=== PATIENT | female | born 1985 | race Caucasian/White ===

== ENCOUNTER → 2023-04-10 | Outpatient (CLI) | payer BC, SELFPAY ==
[2023-04-10 12:34] LABS: Absolute Lymphocyte Count 3.11 X10^3/uL (0.83-4.51); Absolute Neutrophil Count 4.4 X10^3/uL (2.0-7.7); Basophil# 0.04 X10^3/uL; Basophil% 0.5 % (0-1); Eosinophil# 0.07 X10^3/uL; Eosinophils% 0.9 % (0-5); Hematocrit 39.4 % (37-47); Hemoglobin 12.9 g/dL (12.0-15.0); Lymphocyte # 3.11 X10^3/ul (0.83-4.51); Lymphocyte % 37.8 % (19-41); Mean Corp Hgb Conc 32.7 g/dL (32-36); Mean Corpuscular Hgb 28.9 pg (27.0-32.0); Mean Corpuscular Volume 88.3 fL (81-99); Mean Platelet Vol. 9.5 fl (6.2-12.0); Monocyte# 0.59 X10^3/uL; Monocyte% 7.2 % (0-10); NRBC Flagged by Analyzer 0 % (0-5); Neutrophil # 4.39 X10^3/uL (2.7-7.7); Neutrophil % 53.2 % (47-70); Platelet Count 387 K/mm3 (150-450); RBC Distribution Width CV 12.2 % (11.6-14.6); RBC Distribution Width SD 39.4 fl (35.1-43.9); Red Blood Count 4.46 M/mm3 (4.2-5.4); White Blood Count 8.2 K/mm3 (4.4-11.0)
[2023-04-10 13:12] LABS: Vitamin D,25 Hydroxy 48.7 ng/mL
[2023-04-10 13:28] LABS: ALB/GLOB Ratio 1.1 RATIO (0.9-2.4); AST(SGOT) 18 U/L (15-37); Alanine Aminotransfer ALT/SGPT 17 U/L (13-56); Albumin, Serum 3.6 g/dL (3.2-5.0); Alkaline Phosphatase 87 U/L (45-117); Anion Gap 5 (5-15); BUN 16 mg/dL (7-18); BUN/Creat Ratio 23.6 RATIO (10-20); Calcium,Total 8.9 mg/dL (8.5-10.1); Chloride 106 mmol/L (98-107); Cholesterol 132 mg/dL (200); Creatinine, Serum 0.68 mg/dL (0.55-1.02); EST Glomerular Filtration Rate 103 mL/min (>60); Est Glom Filt Rate - Afr Amer 124 mL/min (>60); Globulin 3.3 g/dL (2.2-4.2); Glucose 94 mg/dL (74-106); High Density Lipoprotein 52 mg/dL; Potassium 3.9 mmol/L (3.5-5.1); Protein, Total 6.9 g/dL (6.4-8.2); Sodium Level 138 mmol/L (136-145); Thyroid Stim Hormone (TSH) 1.91 uIU/mL (0.358-3.74); Triglycerides 75 mg/dL; Very Low Density Lipoprotein 15 mg/dL (5-40)
== END | disposition home or self-care (01) ==
LOC: MFPLAB 11:01
PROVIDERS: PCP Family Medicine; Visit Provider Family Medicine
DX: E66.9 Obesity, unspecified (principal); Z13.21 Encounter for screening for nutritional disorder; Z13.220 Encounter for screening for lipoid disorders; Z13.1 Encounter for screening for diabetes mellitus
CPT/HCPCS: 36415; 80053; 80061; 82306; 84443; 85025

== ENCOUNTER → 2023-05-14 | Outpatient (CLI) | payer BC, SELFPAY ==
[2023-05-21 14:09] LABS: HPV APTIMA, High Risk Negative (Negative)
[2023-05-22 18:58] LABS: HPV Reflexed? YES, CHARGE PATIENT
== END | disposition home or self-care (01) ==
LOC: LABSPEC 15:19
PROVIDERS: PCP Family Medicine; Referring Provider Family Medicine; Visit Provider Family Medicine
DX: Z12.4 Encounter for screening for malignant neoplasm of cervix (principal)
CPT/HCPCS: 87624; 88175; G0145

== ENCOUNTER → 2024-04-11 | Outpatient (CLI) | payer BC, SELFPAY ==
--- NOTE | 2024-04-11 07:34 | MRI_ITS ---
STUDY: MRI LEFT KNEE REASON FOR EXAM: Female, 39 years old. Injury, pain, difficulty bending, unstable left knee. TECHNIQUE: Standardized fat and water weighted pulse sequences were obtained in all 3 orthogonal planes. COMPARISON: None. FINDINGS: There is a horizontal-oblique undersurface tear of the posterior horn of the medial meniscus (sagittal PD series 4 images 9-13). Normal hyaline cartilage of the medial femorotibial compartment. Normal medial femoral condyle and tibial plateau. There is a minimal grade I MCL sprain with periligamentous edema (coronal T2 series 7 images 13-17). Normal distal semimembranosus, gracilis and semitendinosus tendons. Normal lateral meniscus. Normal hyaline cartilage of the lateral femorotibial compartment. Normal lateral femoral condyle. Normal proximal tibiofibular articulation. Normal lateral collateral (fibular) ligament. Normal popliteus tendon. Normal biceps femoris tendon. There is a tear of the proximal third of the ACL (sagittal T2 series 5 image 13). There is an associated bone impaction injury involving the posterior aspect of the lateral tibial plateau. Normal posterior cruciate ligament (PCL). 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 Congruent patellofemoral articulation. Normal medial and lateral patellar retinaculum. Normal quadriceps tendon. Normal patellar tendon. Normal Hoffa''s fat pad. There is a small volume joint effusion. There is a small partially leaking popliteal cyst. There is mild subcutaneous soft tissue edema along the anterior aspect of the knee. MRI/Lower Ext Joint Only (Routine) IMPRESSION: Tear of the proximal third of the ACL, with associated bone impaction injuries involving the posterior aspect of the lateral tibial plateau. Horizontal-oblique undersurface tear of the posterior horn of the medial meniscus. Minimal grade I MCL sprain. 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 Small joint effusion, with a small partially leaking popliteal cyst. Mild subcutaneous soft tissue edema along the anterior aspect of the knee. Electronically Signed: Master Davila MD at 8:51 EDT ,
== END | disposition home or self-care (01) ==
LOC: MRI 07:13
PROVIDERS: PCP Family Medicine; Referring Provider Nurse Practitioner Family; Visit Provider Nurse Practitioner Family
DX: S89.92XA Unspecified injury of left lower leg, initial encounter (principal); X58.XXXA Exposure to other specified factors, initial encounter
CPT/HCPCS: 73721

== ENCOUNTER → 2024-07-10 | Outpatient (CLI) | payer BC, SELFPAY ==
[2024-07-10 10:41] LABS: Absolute Neutrophil Count 3.8 X10^3/uL (2.0-7.7); Basophil# 0.07 X10^3/uL; Basophil% 0.9 % (0-1); Eosinophil# 0.18 X10^3/uL; Eosinophils% 2.4 % (0-5); Hematocrit 39.7 % (37-47); Hemoglobin 12.8 g/dL (12.0-15.0); Lymphocyte % 37.9 % (19-41); Mean Corp Hgb Conc 32.2 g/dL (32-36); Mean Corpuscular Hgb 27.6 pg (27.0-32.0); Mean Corpuscular Volume 85.6 fL (81-99); Mean Platelet Vol. 10.3 fl (6.2-12.0); Monocyte# 0.49 X10^3/uL; Monocyte% 6.6 % (0-10); NRBC Flagged by Analyzer 0 % (0-5); Neutrophil # 3.83 X10^3/uL (2.7-7.7); Neutrophil % 51.9 % (47-70); Platelet Count 283 K/mm3 (150-450); RBC Distribution Width CV 12.4 % (11.6-14.6); RBC Distribution Width SD 38.8 fl (35.1-43.9); Red Blood Count 4.64 M/mm3 (4.2-5.4); White Blood Count 7.4 K/mm3 (4.4-11.0)
[2024-07-10 11:42] LABS: Anion Gap 6 (5-15); BUN 20 mg/dL (7-18); BUN/Creat Ratio 21.6 RATIO (10-20); Calcium,Total 8.8 mg/dL (8.5-10.1); Chloride 108 mmol/L (98-107); Cholesterol 131 mg/dL (200); Creatinine, Serum 0.92 mg/dL (0.55-1.02); EST Glomerular Filtration Rate 71 mL/min (>60); Est Glom Filt Rate - Afr Amer 86 mL/min (>60); Glucose 104 mg/dL (74-106); High Density Lipoprotein 49 mg/dL; Potassium 4.2 mmol/L (3.5-5.1); Sodium Level 139 mmol/L (136-145); Triglycerides 64 mg/dL; Very Low Density Lipoprotein 13 mg/dL (5-40)
== END | disposition home or self-care (01) ==
LOC: MFPLAB 08:11
PROVIDERS: PCP Family Medicine; Visit Provider Family Medicine
DX: R63.4 Abnormal weight loss (principal)
CPT/HCPCS: 36415; 80048; 80061; 82306; 84443; 85025

== ENCOUNTER 2024-08-13 07:56 | Day surgery (SDC) | payer BC, SELFPAY ==
[2024-08-13] VITALS (10 sets, daily range): BP systolic 94–132; BP diastolic 64–90; PULSE 65–85; RESP 16–18; TEMP 36.4–37.1; O2SAT 96–100; BMI 33.2
[2024-08-13 08:17] LABS: Internal QC Validated? YES +Cl - CLEAR BKGD; Pregnancy, Urine Negative Negative
--- OUTSIDE RECORDS SUMMARY | 2024-08-13 08:17 | XMS RPT_ITS | CCD ---
Author Organization [facility]formerly [facility] Partnership [facility] Care Team Providers Care Research Laboratory Technician Name Role Phone Unavailable Primary Care Provider Unavailguilherme e STEPHANIE FRANCO Attending Unavailable STEPHANIE FRANCO Referring Unavailable STEPHANIE FRANCO Referring Unavailable Medications Completed/Discontinued Medications Medication Drug Class(es) Dates Sig (Normalized) Sig (Original) 24 hr buPROPion hydrochloride 300 mg extended release oral tablet (1 source) Aminoketone take 1 tablet by mouth once daily buPROPion XL (WELLBUTRIN XL) 300 mg 24 hr tablet Take 300 mg by mouth once daily. 0 Active Comment on above: Take 300 mg by mouth once daily. Ethinyl Estradiol / Ferrous fumarate / Norethindrone (1 source) Estrogen Start: 10-21-2023 take 1 tablet by mouth once daily Norethin Monico-Eth Estrad-FE (.03/12, ,) 1.5 mg-30 mcg (21)/75 mg (7) tablet Indications: DUB (dysfunctional uterine bleeding) , IUD (intrauterine device) in place Take 1 tablet by mouth once daily. 28 tablet 0 10/21/2023 Active Comment on above: Take 1 tablet by once daily. levonorgestrel 0.748561 mg/hr intrauterine system (1 source) Progestin, Progestin-containi ng Intrauterine Device levonorgestrel (LILETTA) 20.4 mcg/24 hrs (8 yrs) 52 mg IUD 1 Each by INTRAUTERINE route one time only. 0 Active Comment on above: 1 Each by INTRAUTERI NE route one time only. Problems Problem Classification Problem Date Documented Date Episodic/Chronic Contraceptive and procreative management (1 source) Presence of (intrauterine) contraceptive device; Translations: [IUD (intrauterine device) in place] Onset: 11-04-2023 Episodic Other female genital disorders (1 source) Other specified abnormal uterine and vaginal bleeding; Translations: [DUB (dysfunctional uterine bleeding)] Onset: 11-04-2023 Chronic Other screening for suspected conditions (not mental disorders or infectious disease) (1 source) Encounter for screening mammogram for malignant neoplasm of breast; Translations: [Encounter for screening mammogram for breast cancer] Onset: 01-09-2024 Episodic Results Test Name Value Interpretation Reference Range Arthur Amaya 01-10-2024 [facility] HNO ID: [id number] Author: COORDINATOR, MAMMOGRAPHY, ? Service: ? Author Type: Physician Type: Letter Filed: 01/10/2024 10:59 Note Text: January 10, 2024 PID: [id number] Bucky Earle [address] [place] [address] Dear Ms. Og, We are pleased to inform you that the results of your recent breast imaging exam on 01/09/2024 are normal. Early detection of cancer is very important. We also understand recommendations regarding breast cancer screening are controversial. Please discuss with your primary care provider which strategy is best for you and whether a mammogram is right for you. Your imaging studies and report will be kept on file at [facility] as part of your permanent medical record and are available for your continuing care. Thank you for allowing us to help in meeting your health care needs. Sincerely, Dr. Cartagena Interpreting Radiologist [facility] (Normal over 40) Normal [facility] SCREENINGon 01-09-2024 [facility] SCREENING * * *Final Report* * * DATE OF EXAM: Jan 09 2024 11:12AM [facility] 0581 - [facility] SCREENING / PROCEDURE REASON: Encounter for screening mammogram for breast cancer * * * * Physician Interpretation * * * * RESULT: #[id number] - [facility] SCREENING BILATERAL DIGITAL SCREENING MAMMOGRAM WITH CAD: 01/09/2024 HISTORY: Encounter For Screening Mammogram For Breast Cancer / Screening Mammogram-Patient reports NO symptoms. /baseline mammogram. RESULT: TECHNIQUE: The study was acquired using full field digital technology and interpreted from soft copy. Current study was also evaluated with a Computer Aided Detection (CAD). No prior exams were available for comparison. There are scattered areas of fibroglandular density. Bilateral silicone implants are present. No significant masses, calcifications, or other findings are seen in either breast. IMPRESSION: BENIGN FINDING There is no mammographic evidence of malignancy. A 1 year screening mammogram is recommended. Geeta Cartagena M.D., mc/santi:01/10/2024 10:59:17 News Gathering Technician(s): Jessie Brice RT(R)(M), [facility] letter sent: Normal over 40 Mammogram BI-RADS: 2 Benign finding Multiple national specialty organizations have released breast cancer screening guidelines for women at average risk for developing breast cancer - guidelines that are based on both evidence and opinion, yet differ on when to start and how often to screen for breast cancer. With representation from Breast Imaging, Internal Medicine, Women's Health, Family Medicine, and Medical/Surgical Oncology, the [facility] has carefully reviewed the data and reached the following consensus: 1) All women should engage in shared decision-making with their providers to decide when to start and how often to screen; 2) All women should have the opportunity to start screening mammography at age 40; 3) For women ages 45-55, we recommend annual screening mammograms; 4) For women ages 55 and over, we support both the transition from an annual to a biennial interval if this aligns more with patient's values and preferences, or continuation with annual screening; 5) All women should discuss with their providers when to stop screening mammograms. Construction Grip: Santi Transcribe Date/Time: Jan 09 2024 10:43A Dictated by: GEETA CARTAGENA MD This examination was interpreted and the report reviewed and electronically signed by: GEETA CARTAGENA MD on Jan 10 2024 10:59AM EST [id number] Normal [facility] FEMALE PELVIS TRANSVAGon 11-04-2023 US FEMALE PELVIS TRANSVAG * * *Final Report* * * DATE OF EXAM: Nov 04 2023 10:26AM [facility] 1060 - US FEMALE PELVIS TRANSVAG / PROCEDURE REASON: multiple diagnoses * * * * Physician Interpretation * * * * EXAMINATION: TRANSVAGINAL AND LIMITED TRANSABDOMINAL FEMALE PELVIC ULTRASOUND CLINICAL HISTORY: Dysfunctional uterine bleeding. Intrauterine device. TECHNIQUE: Sonography of the pelvis was performed by transvaginal and transabdominal (limited) techniques. Images were obtained and stored in a permanent archive and interpreted remotely. MQ: [facility]_2022 COMPARISON: None RESULT: Uterus: -Size: 4.4 x 5.9 x 7.9 cm -Orientation: Anteverted -Endometrial echo complex: Intrauterine device appears in satisfactory position sonographically. The endometrial echo complex measured 0.4 cm. -Cervix: Nabothian cysts present, otherwise unremarkable. -Adenomyosis assessment: There are no sonographic findings of adenomyosis. -Fibroids: There are no fibroids. Right Ovary: 1.3 x 1.8 x 2.4 cm - Normal sonographic appearance with physiologic follicles. Preserved arterial and venous blood flow. Left Ovary: 1.8 x 2.6 x 2.8 cm - Normal sonographic appearance with physiologic follicles. Preserved arterial and venous blood flow Free Fluid: No abnormal free fluid is present. IMPRESSION: Normal sonographic appearance of the female pelvis with intrauterine device in place. Construction Grip: TRENT Transcribe Date/Time: Nov 04 2023 11:42A Dictated by : ИВАН MCKEON MD This examination was interpreted and the report reviewed and electronically signed by: ИВАН MCKEON MD on Nov 04 2023 11:45AM EST [id number] Normal [facility] CNOVon 10-21-2023 CNOV Office Visit (OBGYWM ) EARLEBUCKY Calloway ([id number]) 1985 F Date Time Provider Department 10/21/23 11:10 AM STEPHANIE FRANCO OBGYWM During your visit today, we recorded the following information about you: Blood pressure Weight Height Last Period 120/80 81.1 kg 1.6 m 09/29/23 Stephanie Franco MD 10/21/2023 1:04 PM Signed Bucky Og is a 38 year old female who presents for problem visit - irregular bleeding and abnormal pap smear. HPI: H/o menorrhagia since 2015 and had Liletta IUD inserted in 2020 for this. Bleeding is head porter baggage but sporadic. Bleeding more days out of the month than not. had vasectomy. No h/o fibroids or polyps. She reports she had a pelvic US done prior to IUD insertion and it was normal in 2019. Mother with large fibroid uterus requiring a hysterectomy with benign pathology. She had a LEEP procedure about 20 years ago per patient report. Pap smears have been normal since then, but she had a pap in May 2023 with her PCP that returned as ASCUS negative HPV. OB History T0 L2 SAB0 IAB0 Ectopic0 Multiple0 Live Births0 Residential Treatment Counselor History LMP: 09/29/2023, IUD Age at Menarche: Age at First : Age at Menopause: Residential Treatment Counselor History Comments: Sexual Activity: Yes; Male Contraception: I.U.D. PAST MEDICAL HISTORY Diagnosis Date History of abnormal cervical Pap smear PAST SURGICAL HISTORY Procedure Laterality Date CERVIX UTERI CONIZA LP ELCTRO EXCI FAMILY HISTORY Problem Relation Age of Onset Breast Cancer Maternal Grandmother Social History Tobacco Use Smoking status: Never Smokeless tobacco: Never Vaping Use Vaping Use: Never used Substance Use Topics Alcohol use: Yes Comment: occasional Drug use: Never Current Outpatient Medications Medication Sig buPROPion XL (WELLBUTRIN XL) 300 mg 24 hr tablet Take 300 mg by mouth once daily. levonorgestrel (LILETTA) 20.4 mcg/24 hrs (8 yrs) 52 mg IUD 1 Each by INTRAUTERINE route one time only. Norethin Monico-Eth Estrad-FE (, ,) 1.5 mg-30 mcg (21)/75 mg (7) tablet Take 1 tablet by mouth once daily. No current facility-administered medications for this visit. Allergies As of Date: 10/21/2023 (No Known Allergies) Fully Assessed 10/21/2023 REVIEW OF SYSTEMS Expanded ROS: N/A Allergies and current medication updated:Yes EXAM: BP 120/80 Ht 5' 3 (1.60m) Wt 178 lb 12.8 oz (81.1kg) LMP 09/29/2023 BMI 31.68 kg/(m2). GENERAL: pleasant, female in no apparent distress HEENT: Normocephalic and atraumatic NECK: full range of motion DERMATOLOGY: Normal, without lesions, non-icteric, and non-hirsute CHEST: Normal inspiratory effort ABDOMEN: soft, non-tender, and no masses PELVIC: external genitalia normal, normal Bartholin's glands, urethra, Woodford's glands, no vulvar lesions, no cervical lesions, good vaginal support, physiologic discharge present, normal appearing perineal body and perianal region, IUD strings visible NEURO: exam grossly non-focal EXTREMITIES: normal ASSESSMENT AND PLAN: Encounter Diagnosis ICD-10-CM 1. DUB (dysfunctional uterine bleeding) N93.8 US FEMALE PELVIS TRANSVAG Norethin Monico-Eth Estrad-FE (, ,) 1.5 mg-30 mcg (21)/75 mg (7) tablet PELVIC US WHI 2. IUD (intrauterine device) in place Z97.5 US FEMALE PELVIS TRANSVAG Norethin Monico-Eth Estrad-FE (, ,) 1.5 mg-30 mcg (21)/75 mg (7) tablet PELVIC US WHI 3. History of abnormal cervical Pap smear Z87.42 4. Encounter for screening mammogram for breast cancer Z12.31 [facility] SCREENING Irregular bleeding with Liletta IUD. No evidence of infectious process on exam. Had recent CBC and TSH with PCP. Check pelvic US to assess for polyps or fibroids. IUD strings visualized. had vasectomy. Patient would like to keep IUD given h/o menorrhagia. Trial of ocp for 1 month to regulate bleeding and rx sent in after discussion. Reviewed ASCUS pap with negative HPV with patient and ASCCP guidelines. Schedule follow up after pelvic US and trial of ocp. Mammogram ordered given age. Stephanie Franco DO Medical Decision Making: Problems: Moderate: 1+ chronic illnesses with change Data: Unique test(s) ordered: 2 Risk: Moderate: Drug management Medical Decision Making Level: 4 - Moderate Stephanie Franco MD 10/21/2023 11:53 AM Signed Gardasil Gardasil is a vaccine to protect against Human Papillomavirus (HPV) types 6, 11, 16, 18, 31,33,45, 52, 58. These viruses cause cancer and precancerous lesions on the cervix (opening between vagina and uterus), in the vagina and on the vulva (skin around the outside of the vagina) as well as genital warts. The vaccine cannot cause these diseases and cannot treat them if already present. Gardasil works best if given before contact with HPV. Most people are exposed to HPV soon after starting sexual activity. The vaccine is recom (more content not included)... Normal [facility] Encounters Encounter Date Encounter Type Care Provider Facility Start: 01-10-2024 Documentation procedure Mammog dena Coordinator [facility] Start: 01-10-2024 Letter encounter Mammography Coordinator [facility] Department Start: 01-09-2024 End: 01-09-2024 ambulatory [facility] Facility:[facility] Start: 11-04-2023 End: 11-04-2023 [facility] Facility:[facility] Start: 10-21-2023 End: 10-21-2023 [facility] Facility:[facility] Plan of Treatment Date Care Activity Detail Author Start: 06-01-2032 Urine microalbumin profile DTa P,Tdap,Td Vaccine (3 - Td or Tdap) [facility] Start: 01-08-2025 Screening for malign ant neoplasm of breast Mammogram Screening [facility] Start: 10-14-2023 Depression Assessment Depression Ass essment [facility] Start: 06-14-2023 Covid-19 Vaccine ( season) Covid-19 Vaccine () [facility] Start: 01-05-2014 Screening for malign ant neoplasm of cervix HPV Testing [facility] Start: 01-05-2005 Screening for malign ant neoplasm of cervix Pap Testing [facility] Start: 01-05-2002 Hepatitis C screening Hepatitis C Sc reening [facility] Start: 01-05-2002 HIV screening HIV Screening [facility] Payers Date Payer Category Payer Unknown [employer]INA COLMENARES BS FEP PPO [id number] 2022-Present [phone] [address] [place] [address] PPO [id number] 2022 Unknown [id number] Social History Date Type Detail Facility Start: 10-21-2023 Tobacco smoking stat NHIS Never smoked tobacco [facility] Start: 10-21-2023 Tobacco use and exposure Smokeless t obacco non-user [facility] Start: 10-21-2023 Alcohol intake Current drinke r of alcohol (finding) [facility] Start: 10-21-2023 History of Social function [facility] Start: 10-21-2023 Tobacco use panel [facility] National Score (1-10 0), lower number is lower risk 71 [facility] Start: 10-21-2023 Alcohol Comment occasional [facility] Start: 1985 Sex Assigned At Not on file [facility] Clinic Note 01-10-2024 Letter - Coordinator, Mammography - 01/10/2024 10:59 AM EDT Note Date & Type Note Facility 01-10-2024 Miscellaneous Notes Formattin g of this note might be different from the original. January 10, 2024 PID: [id number] Bucky Og [address] [place] [id number] Dear Ms. Og, We are pleased to inform you that the results of your recent breast imaging exam on 01/09/2024 are normal. Early detection of cancer is very important. We also understand recommendations regarding breast cancer screening are controversial. Please discuss with your primary care provider which strategy is best for you and whether a mammogram is right for you. Your imaging studies and report will be kept on file at [facility] as part of your permanent medical record and are available for your continuing care. Thank you for allowing us to help in meeting your health care needs. Sincerely, Dr. Cartagena Interpreting Radiologist [facility] (Normal over 40) documented in this encounter [facility] Progress note 01-09-2024 Note Date & Type Note Facility 01-09-2024 Note HNO ID: [id number] Author: GEORGIE BRICE, Mammo Tech Service: ? Author Type: Sales Assistant Displays Type: Progress Notes Filed: 01/09/2024 11:03 Note Text: Radiology Service Progress Note PATIENT NAME: Bucky Og DATE OF SERVICE: January 09, 2024 TIME: 10:37 AM PATIENT IDENTITY VERIFICATION COMPLETED USING TWO (2) IDENTIFIERS: Name and Date of confirmed by patient verbally. FALL SCREENING: Has the patient had 2 falls in the last year or 1 fall with injury or currently using an Ambulatory Assistive Device (Walker, Cane, Wheelchair, Crutches, etc.)? No PATIENT GENDER DATA: Female. status: : No status: NO. PATIENT RELEVANT IMPLANT DATA REVIEWED: Not Applicable PATIENT PRESENTS WITH AN IMPLANTABLE OR ATTACHED PRODUCE RUNNER: No RADIOLOGY DEPARTMENT: Mammography PERIPHERAL IV DATA: Not applicable SIGNED BY: Georgie Brice Winerist January 09, 2024 10:37 AM [facility] Progress note 11-04-2023 Note Date & Type Note Facility 11-04-2023 Note HNO ID: [id number] Author: CLOTILDE GARZA RDMS Service: ? Author Type: Sales Assistant Displays Type: Progress Notes Filed: 11/04/2023 11:13 Note Text: Radiology Service Progress Note PATIENT NAME: Bucky Og DATE OF SERVICE: November 04, 2023 TIME: 11:13 AM PATIENT IDENTITY VERIFICATION COMPLETED USING TWO (2) IDENTIFIERS: Name and Date of confirmed by patient verbally. FALL SCREENING: Has the patient had 2 falls in the last year or 1 fall with injury or currently using an Ambulatory Assistive Device (Walker, Cane, Wheelchair, Crutches, etc.)? No PATIENT GENDER DATA: Female. status: : No status: NO. PATIENT RELEVANT IMPLANT DATA REVIEWED: Not Applicable RADIOLOGY DEPARTMENT: Ultrasound PERIPHERAL IV DATA: Not applicable SIGNED BY: Clotilde Garza RDMS November 04, 2023 11:13 AM [facility] Progress note 10-21-2023 Note Date & Type Note Facility 10-21-2023 Note HNO ID: [id number] Author: STEPHANIE FRANCO MD Service: ? Author Type: Physician Type: Progress Notes Filed: 10/21/2023 13:04 Note Text: Bucky Og is a 38 year old female who presents for problem visit - irregular bleeding and abnormal pap smear. HPI: H/o menorrhagia since 2015 and had Liletta IUD inserted in 2020 for this. Bleeding is head porter baggage but sporadic. Bleeding more days out of the month than not. had vasectomy. No h/o fibroids or polyps. She reports she had a pelvic US done prior to IUD insertion and it was normal in 2019. Mother with large fibroid uterus requiring a hysterectomy with benign pathology. She had a LEEP procedure about 20 years ago per patient report. Pap smears have been normal since then, but she had a pap in May 2023 with her PCP that returned as ASCUS negative HPV. OB History T0 L2 SAB0 IAB0 Ectopic0 Multiple0 Live Births0 Residential Treatment Counselor History LMP: 09/29/2023, IUD Age at Menarche: Age at First : Age at Menopause: Residential Treatment Counselor History Comments: Sexual Activity: Yes; Male Contraception: I.U.D. PAST MEDICAL HISTORY Diagnosis Date History of abnormal cervical Pap smear PAST SURGICAL HISTORY Procedure Laterality Date CERVIX UTERI CONIZA LP ELCTRO EXCI FAMILY HISTORY Problem Relation Age of Onset Breast Cancer Maternal Grandmother Social History Tobacco Use Smoking status: Never Smokeless tobacco: Never Vaping Use Vaping Use: Never used Substance Use Topics Alcohol use: Yes Comment: occasional Drug use: Never Current Outpatient Medications Medication Sig buPROPion XL (WELLBUTRIN XL) 300 mg 24 hr tablet Take 300 mg by mouth once daily. levonorgestrel (LILETTA) 20.4 mcg/24 hrs (8 yrs) 52 mg IUD 1 Each by INTRAUTERINE route one time only. Norethin Monico-Eth Estrad-FE ( 1.03/12, 28,) 1.5 mg-30 mcg (21)/75 mg (7) tablet Take 1 tablet by mouth once daily. No current facility-administered medications for this visit. Allergies As of Date: 10/21/2023 (No Known Allergies) Fully Assessed 10/21/2023 REVIEW OF SYSTEMS Expanded ROS: N/A Allergies and current medication updated:Yes EXAM: BP 120/80 Ht 5' 3 (1.60m) Wt 178 lb 12.8 oz (81.1kg) LMP 09/29/2023 BMI 31.68 kg/(m2). GENERAL: pleasant, female in no apparent distress HEENT: Normocephalic and atraumatic NECK: full range of motion DERMATOLOGY: Normal, without lesions, non-icteric, and non-hirsute CHEST: Normal inspiratory effort ABDOMEN: soft, non-tender, and no masses PELVIC: external genitalia normal, normal Bartholin's glands, urethra, Woodford's glands, no vulvar lesions, no cervical lesions, good vaginal support, physiologic discharge present, normal appearing perineal body and perianal region, IUD strings visible NEURO: exam grossly non-focal EXTREMITIES: normal ASSESSMENT AND PLAN: Encounter Diagnosis ICD-10-CM 1. DUB (dysfunctional uterine bleeding) N93.8 US FEMALE PELVIS TRANSVAG Norethin Monico-Eth Estrad-FE (, ,) 1.5 mg-30 mcg (21)/75 mg (7) tablet PELVIC US WHI 2. IUD (intrauterine device) in place Z97.5 US FEMALE PELVIS TRANSVAG Norethin Monico-Eth Estrad-FE (, ,) 1.5 mg-30 mcg (21)/75 mg (7) tablet PELVIC US WHI 3. History of abnormal cervical Pap smear Z87.42 4. Encounter for screening mammogram for breast cancer Z12.31 [facility] Irregular bleeding with Liletta IUD. No evidence of infectious process on exam. Had recent CBC and TSH with PCP. Check pelvic US to assess for polyps or fibroids. IUD strings visualized. had vasectomy. Patient would like to keep IUD given h/o menorrhagia. Trial of ocp for 1 month to regulate bleeding and rx sent in after discussion. Reviewed ASCUS pap with negative HPV with patient and ASCCP guidelines. Schedule follow up after pelvic US and trial of ocp. Mammogram ordered given age. Stephanie Franco DO Medical Decision Making: Problems: Moderate: 1+ chronic illnesses with change Data: Unique test(s) ordered: 2 Risk: Moderate: Drug management Medical Decision Making Level: 4 - Moderate [facility] Summary Purpose Family History No Family History Records Found Advance Directives No Advanced Directives Records Found Additional Source Comments Source Comments (unrecognize d section and content) In the event this informatio n is protected by the Federal Confidentiality of Alcohol and Drug Abuse Patient Records regulations: The Federal rules restrict any use of the information to criminally investigate or prosecute any alcohol or drug abuse patient.[facility] INFORMATION SOURCE (unrecogn ized section and content) DATE CREATED AUTHOR 01/14/2024 [facility] FOR RECORDS PERTAINING TO PATIENTS WHO ARE OR HAVE BEEN ENROLLED IN A CHEMICAL DEPENDENCY/SUBSTANCEABUSE PROGRAM, SOME INFORMATION MAY BE OMITTED. This clinical summary was aggregated from multiple sources. Caution should be exercised in using it in the provision of clinical care. This summary normalizes information from multiple sources, and as a consequence, information in this document may materially change the coding, format and clinical context of patient data. In addition, data may be omitted in some cases. CLINICAL DECISIONS SHOULD BE BASED ON THE PRIMARY CLINICAL RECORDS. [facility]. provides no warranty or guarantee of the accuracy or completeness of information in this document.
--- NOTE | 2024-08-13 08:30 | PRE.ANES_ITS ---
ASA Classification* ASA Classification ASA Classification: 2 Assessment & Plan Anesthesia* Anesthesia Assessment Anesthesia Assessment: Discussed sedation and/or anesthesia options, risks, benefits, and alternatives with patient/parents/legal guardian/POA. Questions invited. The patient/parents/legal guardian/POA seems to understand and agrees to proceed with anesthesia plan. Reviewed the physical assessment, medical history, allergy history and patient home medications list prior to surgery/procedure/anesthetic and documented any changes. Performed airway and anesthesia risk assessments. Anesthesia Type Anesthesia Type: General (Block requested/consented) Anesthesia Focused Assessment* Airway Assessment Mouth opens: >3 cm Mallampati Score: II Focused Labs Anesthesia Preop lab: CBC WBC 7.4 K/mm3 (4.4-11.0) 07/10/24 08:14 RBC 4.64 M/mm3 (4.2-5.4) 07/10/24 08:14 Hgb 12.8 g/dL (12.0-15.0) 07/10/24 08:14 Hct 39.7 % (37-47) 07/10/24 08:14 Plt Count 283 K/mm3 (150-450) 07/10/24 08:14 CHEMISTRY Potassium 4.2 mmol/L (3.5-5.1) 07/10/24 08:14 Sodium 139 mmol/L (136-145) 07/10/24 08:14 BUN 20 mg/dL (7-18) H 07/10/24 08:14 Creatinine 0.92 mg/dL (0.55-1.02) 07/10/24 08:14 Glucose 104 mg/dL (74-106) 07/10/24 08:14 TSH 2.430 uIU/mL (0.358-3.740) 07/10/24 08:14 COAG Urine Test Negative Negative 08/13/24 08:06 Pre-Assessment Diagnosis/Proposed Procedure Planned Operative Procedure(s): LEFT KNEE ARTHROSCOPIC ANTERIOR CRUCIATE LIGAMENT RECONSTRUCTION WITH ALLOGRAFT, MEDIAL MENISCAL REPAIR, AND POSSIBLE PARTIAL MEDIAL MENISECTOMY Anesthesia History Anesthesia History - purchasing administrative assistant: Anesthesia History - purchasing administrative assistant Hx Hospitalization No 08/03/24 09:31 Any Problems With Anesthesia No 08/03/24 09:31 Cholinesterase deficiency No 08/03/24 09:31 You/Your Family Experience No 08/03/24 09:31 fever (hyperthermia) with Relationship Recent Exposure to Contagious Disease Does patient have nerve No 08/03/24 09:31 stimulator Patient instructed to have device shut off --Does patient have Pacemaker or ICD? When Was Last Pacemaker Check QUESTION #4 FULL TEXT: You/Your Family Experience fever (hyperthermia) with Anesthesia Last Oral Intake Last Oral intake: Last Oral Intake NPO since Meds taken in AM with sips of water? Meds patient instructed to take am of surgery PONV PONV - purchasing administrative assistant: PONV - purchasing administrative assistant Female Yes 08/03/24 09:31 HX of Motion Sickness Yes 08/03/24 09:31 HX of N/V After Surgery No 08/03/24 09:31 Non-Smoker Yes 08/03/24 09:31 Duration of Surgery greater Yes 08/03/24 09:31 than 60 minutes Number of Risk Factors 4 08/03/24 09:31 PONV Score Severe Risk 08/03/24 09:31 Respiratory Assessment Respiratory Assessment - purchasing administrative assistant: Respiratory Tract Infection Hx - purchasing administrative assistant Hx Respiratory Tract Infection No 08/03/24 09:31 STOP Sleep Apnea STOP Sleep Apnea - purchasing administrative assistant: STOP Sleep Apnea - purchasing administrative assistant Hx Hypertension No 08/03/24 09:31 Hx Sleep Apnea No 08/03/24 09:31 CPAP BIPAP Do you snore loudly (louder No 08/03/24 09:31 than talking or can be heard Do you often feel tired/ No 08/03/24 09:31 fatigued/ sleepy during daytime? Has anyone observed you stop No 08/03/24 09:31 breathing during sleep? STOP Results Negative 08/03/24 09:31 QUESTION #5 FULL TEXT : Do you snore loudly (louder than talking or can be heard through closed doors)? Tobacco Use History Tobacco Use History - purchasing administrative assistant: Tobacco Use History - purchasing administrative assistant Tobacco Use Smoking Status Never smoker 08/03/24 09:31 Hx Tobacco Use No 08/03/24 09:31 Years Smoking Packs Smoked per Day Smoking Cessation Date was within the last 15 years Hx Smoking Cessation Date Hx Smoking Cessation Counseling Hematologic Medial History Hematologic Hx - purchasing administrative assistant: Hematologic Medical Hx - production lead Hx of Blood Transfusion No 08/03/24 09:31 Hx of Transfusion in last 3 No 08/03/24 09:31 Months Date of Last Transfusion (if within last 3 months) Ever experience any problems No 08/03/24 09:31 with transfusion(s)? Specify any problems Hx of Preganancy in last 3 No 08/03/24 09:31 Months Nurse Filling Out Transfusion VCHRISTIN 08/03/24 09:31 & Questions: Date: 08/03/24 08/03/24 09:31 Time: 09:32 08/03/24 09:31 Patient unable to answer at this time (ie. confused, unrespo /Reproduction History /Reproductive History - purchasing administrative assistant: /Reproductive Hx- purchasing administrative assistant Hx Now No 08/03/24 09:31 Gestational Age (in weeks): EDC: Hx Hx Para Hx Section SAB No 08/03/24 09:31 [facility] Medical History Wears contact lenses Wears glasses Depression History of steroid therapy Non-smoker Asthma Home Medications ?Medication ?Instructions ?Recorded ?Last Taken ?Type albuterol sulfate 90 mcg/actuation 1 inh inhalation Q6H 08/03/24 Unknown History breath activated powder inhaler,sensor bupropion HCl 300 mg 24 hr tablet, 300 mg PO DAILY 08/03/24 Unknown History extended release zolpidem 10 mg tablet 10 mg PO DAILY 08/03/24 Unknown History Allergy/AdvReac Type Severity Reaction Status Date / Time No Known Allergies Allergy Verified 08/13/24 08:22 Surgical History Hx of breast augmentation Social History Smoking Status: Never smoker Review of Systems (Anesthesia) ROS Narrative System reviewed and no additional complaints, except as documented.
[2024-08-13] MEDS: Lactated Ringers 1,000 ML 15 ML IV (08:49)
[2024-08-13] MEDS: Cefazolin 2 GM in Syringe IV (09:59)
[2024-08-13] MEDS: Epinephrine (1 mg/ml) 1 MG/ML VIAL (10:22)
[2024-08-13] MEDS: Vancomycin IV 1,000 MG/20 ML Vial 1000 MG OPERA.SITE (10:50)
[2024-08-13] MEDS: Ketorolac 15 MG/ML Vial IV (12:07)
--- NOTE | 2024-08-13 12:17 | PCM.POST.ANE ---
Anesthesia: Postop Eval I Current Vital Signs Temperature: 98.1 F Pulse Rate: 68 Blood Pressure: 98/68 Respiratory Rate: 16 Pulse Ox: 100 Oxygen Delivery Method: Room Air Assessment Airway patent: Yes Spontaneous unlabored respirations: Yes Mental status: Awake and Calm nausea: No Vomiting: No Anesthesia Complication: No Fluid Hydration Crystalloid volume administer (ml): 1,000 Total IV fluid infused: 1,000 Progress Note Anesthesia document: Postop Eval 1 completed: Yes
--- NOTE | 2024-08-13 16:27 | OP.PCM_ITS ---
Operative Report (Standard) Operative Information Surgery/Procedure Performed: 1. Left knee anterior cruciate ligament arthro scopic reconstruction with semitendinosis allograft 2. Left knee arthroscopic partial medial meniscectomy Surgeon: Jarvis Larson Date of Procedure: 08/13/24 Procedure Start Time: 10:22 Procedure Stop Time: 11:13 Pre-Operative Diagnosis: 1. Left knee anterior cruciate ligament rupture 2. Left knee medial meniscus tear Post-Operative Diagnosis: 1. Left knee anterior cruciate ligament rupture 2. Left knee medial meniscus tear Select all DRAINS/GRAFTS/IMPLANTS that apply: None and Implanted device Implanted device details: See op note below Type of Anesthesia: Spinal Estimated Blood Loss: 10 cc Specimen collected: No Description of surgery: Primary Surgeon: Jarvis Larson DO Machine Joint Cutter: Trish Marrufo PA-C Anesthesia: Spinal with sedation with femoral block Anesthesiologist: HAROON Ashby Dr. Complications: None apparent IV fluids: Per anesthesia record Implants: Semitendinosis allograft with Arthrex tight rope femoral fixation with ABS button tibial sided fixation Preoperative indications: This is an otherwise healthy 39-year-old female seen in the outpatient setting diagnosed with a left knee anterior cruciate ligament rupture and medial meniscus tear. MRI confirmed the diagnosis. She rehabbed her knee and regain full motion and excellent strength. She did experience considerable instability and avoidance of specific activities after rehab. Operative intervention in the form of right knee anterior cruciate ligament reconstruction was recommended. We discussed graft options. We settled on an allograft. The risk, benefits, alternatives to the procedure was reviewed with the patient at length. Risks included but were not limited to bleeding, wound complications, infection, loss of life or limb, need for additional surgery, continued instability, persistent pain, posttraumatic arthritis, stiffness, difficulty returning to sport, risk of anesthesia, DVT or PE, neurovascular injury. Patient expressed understanding his risks and wished to proceed with surgery. Informed consent obtained in the office. Description of procedure: Patient was identified in preoperative holding area by name, medical record number, and date of . The operative extremity was marked. Informed consent confirmed with the patient. All questions were answered to patient satisfaction. At time of her procedure, patient was brought to the operative suite and positioned supine on a standard operating table. All bony prominences were well-padded. Spinal anesthetic was administered by anesthesia staff. Patient was positioned supine. A well-padded pneumatic tourniquet on the upper thigh of the operative extremity. I first examined the leg under anesthesia. There was a positive pivot shift and Leonid. We then positioned the operative extremity in a circumferential arthroscopic leg nichols. A well-leg nichols was placed on the patient's nonoperative thigh. We then dropped the foot of the bed 90 degrees. We then prepped and draped the operative lower extremity in a normal, sterile orthopedic fashion. We performed a timeout with all parties in attendance in agreement with the side, site, operation to be performed. No concerns were voiced and we elected to proceed with surgery. 2 g Ancef was administered for antibiotic prophylaxis prior to the incision by the anesthesia staff. The graft was thawed and opened on the back table. Mrs. Marrufo, began to prepare the graft. She prepared a standard all inside fixation with a tight rope attachment on the femoral side. The graft was pretensioned. After the graft was prepared, it was left under tension and kept fresh with a moist sponge and 1 g of vancomycin powder . 9.5 mm was the final graft diameter. During time of graft preparation, I commenced diagnostic and operative arthroscopy. Establish a standard anterolateral portal with an 11 blade scalpel. Blunt tipped trocar and cannula was inserted through this portal as the knee was brought into full extension into the patellofemoral joint. Trocar was removed and arthroscope introduced. Diagnostic arthroscopy demonstrates pristine cartilage surfaces in 3 compartments. Lateral cribriforming was pristine with a normal meniscus. Medial compartment demonstrate a flap tear at the posterior horn. The inner third of the meniscus was torn. Given the appearance of meniscus I felt a partial medial cystectomy was most appropriate and performed this in standard fashion with a combination of arthroscopic baskets and shaver to a stable meniscal rim. The remnants of the ACL was then encountered. ACL rupture was confirmed. I resected the remaining portion of the ACL with a radial resector, marking the footprints with the radiofrequency ablator. I then performed a notchplasty in standard fashion with a 5.5 mm bur. I then introduced the flip cutter drill guide through the anterior lateral portal and the camera was moved to the anterior medial portal. I positioned the drill guide to allow for 2 mm of back wall at approximately the 10:30 position on the lateral wall of the notch. I made a stab incision along the lateral th igh in line with the planned trajectory of the flip cutter. Skin, subcutaneous tissue, and IT band were sharply incised and dilated. Drill guide and drill were then passed down to the level of the lateral femoral cortex. We drilled through the lateral cortex into the intercondylar notch at the planned trajectory location. The flip cutter was then deployed to a diameter of 9.5 mm. The flip cutter was then used to retrograde drill the femoral socket to a depth of 30 mm. Flip cutter was then retracted and pulled from the wound. A fiber stick was then introduced through the femoral socket. The fiber wire was then retrieved out the anterior lateral portal and luggage tagged. Loose pieces of bone was debrided with a radial resector from the knee. I then switched the camera to the lateral portal. I placed the tibial drill guide through the anterior medial portal planning be tunnel placement at the [place] footprint of the ACL. I sharply incised the skin with an 11 blade scalpel through skin and subcutaneous tissues over the anterior medial tibia with planned trajectory of the drill course. I then drilled through the anterior medial tibia into the joint at the planned trajectory. I deployed the flip cutter to a diameter of 9.5 mm and drilled retrograde fashion for the tibial socket, approximately 30 mm in length. I then reversed the flip cutter to 3.5 mm and removed from the joint. I placed a tiger stick through the tibial tunnel and retrieved out the anterior medial portal. I then brought the graft to the surgical field. I retrieved the loop end of the femoral side shuttling suture through the anterior medial portal and attached to the suture ends of the femoral side button of the graft. We then passed the sutures and button through the femoral tunnel. The tight rope button was then deployed and engaged the lateral femoral cortex. We then sequentially tightened the graft to docket into the femoral tunnel. I then retrieve the passing suture for the tibial tunnel at the anteromedial portal and utilized it to pass the tibial side of the graft/sutures. Sutures were then retrieved out the tibial tunnel. I placed an ABS button through the tight rope mechanism is sequentially tightened to appropriate, maximum tension. The knee was then cycled 25 times to prevent creep. Final tightening was performed. I tied 5 half hitch knots over the tibial button. Sutures were then cut. The knee was thoroughly debrided lavage of any loose pieces of bone. Final images were obtained. The tourniquet deflated. Incisions were closed with interrupted [id number] 3-0 nylon suture. Bulky sterile compression dressing was applied. T ROM brace was placed. Patient was awakened from anesthesia. She was transferred to [facility] and subsequently to PACU in stable condition. Need for skilled assistant inventory manager: Trish Marrufo PA-C was critical to the outcome of the case. During the course of the procedure the physician assistant inventory manager played a vital role. Her intimate knowledge of my steps in the procedure aided in safe and expedient completion of the procedure. The PA played a vital role in positioning particularly in obtaining the appropriate positioning. The PA was also vital in the retraction of soft tissues during the exposure and protecting vital structures. The PA was also vital in graft preparation. She also played a vital role in closure and brace application with my direct supervision. Postoperative plan: Weightbearing as tolerated operative extremity Dowell protocol for ACL rehab Physical therapy start in 4 days Oxycodone prescription provided, prescription for Toradol and Tylenol encouraged. Aspirin 81 mg twice daily for DVT prophylaxis, LAURIE hose, early mobilization Follow-up in 2 weeks for suture removal and wound check Surgical Findings: Complete ACL rupture, posterior horn flap tear medial meniscus Member Service Specialist space technologist: Yes Machine Joint Cutter: Trish Marrufo Tasks completed by certified surgical first assistant: Opening, Closing, Hemostasis: Electrocautery and Other (Graft preparation) Additional assistant inventory manager?: No Complications Complications: No Admit VTE Documentation VTE Present on Admission: No VTE Mechan Device Prophylaxis: Thigh High LAURIE Hose VTE Pharm Prophylaxis ordered?: Yes
== END 2024-08-13 15:14 | disposition home or self-care (01) ==
LOC: SDC 07:56 → AC 07:59
PROVIDERS: Anesthesiology; PCP Family Medicine; Referring Provider Student in an Organized Health Care Education/Training Program; Visit Provider Student in an Organized Health Care Education/Training Program
PROC: (CPT 29888; principal; 2024-08-13 09:10)
DX: S83.242A Other tear of medial meniscus, current injury, left knee, initial encounter (principal); S83.512A Sprain of anterior cruciate ligament of left knee, initial encounter; J45.909 Unspecified asthma, uncomplicated; F32.A Depression, unspecified; Z79.51 Long term (current) use of inhaled steroids; Z79.899 Other long term (current) drug therapy; Z86.16 Personal history of COVID-19; X58.XXXA Exposure to other specified factors, initial encounter
CPT/HCPCS: 29888; 29881; 01400; 81025; C1713; J7120; J2405

== ENCOUNTER 2024-11-16 10:00 | Outpatient (RCR) | payer BC, SELFPAY ==
--- NOTE | 2024-04-29 11:17 | HP.PTEVAL_ITS ---
Patient's Visit Information Visit Information Visit Information: BUCKY PELAYO is a 39 year old F referred to Physical Therapy by Dr. Jarvis Larson DO with a diagnosis of Left Knee. 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 She was trying to teach her sister to line dance- she came down and her knee went one way and then it popped- March 28. The first couple of weeks she wore a brace due to instability. In the past week she has only had one episode of instability. She has not been active since the injury. She f eels that she has more fullness or pressure in the posterior knee. Only painful if she tweaks it. The last time she tweaked it was 2 weeks ago. The pain is on the lateral side. Sleep: not disturbed. No N/T in the toes. She feels that she is 75% back to normal. 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 She does not like to squat down. She is not wearing a brace. Normally pretty active- leon[place]- they farm on a property PMHx: none Meds: mobic, wellbutrin, ambien PRN. Objective Objective: Posture: fair throughout Gait: no significant deviation noted HR/TR: able without UE A SLS: bent knee- increased instability- increased muscle sway Palpation: not tender to touch Squat: weight shift to the right ROM: 0-120 with pain at end ranges Strength: Ankle: 5/5 Knee: Extn: Left: 43 Right: 65 Flexion: Left: 25 Right: 43 Quad set: moderate SLR: mild lag Hip: 4/5 throughout, Core: fair Flex: HS: moderate, Gastroc: moderate Balance/Special Test Scores Lower Extremity Functional Score: 52 Goals Goal 1:: Patient will be I with HEP and progression Goal Time Frame: 4-6 Weeks Goal 2:: Patient will SLS for 30 sec without instability Goal Time Frame: 4-6 Weeks Goal 3:: Patient will demo equal strength bilateral LE Goal Time Frame: 4-6 Weeks Goal 4:: Patient will report no pain for 1 week Goal Time Frame: 4-6 Weeks Goal 5:: Patient will report 80% improvement Goal Time Frame: 4-6 Weeks Rehabilitation Potential Physical Therapy Diagnosis: Patient presents with instability s/p knee injury- she has decreased LE and core strength/stabilization, pain free ROM, proprioce ption, flex and muscular endurance leading to increased pain with ADL's. Rehabilitation Potential: Good Anticipated Interventions Patient/Client Instruction: Educate patient on: Benefits of Fitness Program Therapeutic Exercise to Include: Strength training, Endurance training, Balance training, Agility training, Body mechanics, Postural training, Flexibilty training, Gait and locomotor training, Neuromotor development, Dynamic Lumbar Stabilization and Scapular Strength/Stabilization For the Purpose of:: To improve muscle performance and motor function TENS: Yes Cryotherapy (ice pack, ice massage): Yes Thermo therapy (hot pack): Yes Ultrasound (thermal/non thermal): Yes Text: Thank you for the opportunity to evaluate your patient. For Medicare and Medicare HMO plans, please review the plan of care and approve it. It will need to be FAXED BACK to us at [phone] for Medicare purposes. For Medicare only, by signing this I certify the plan of care. Please let me know if there are questions or concerns regarding this plan of care. Physician Signature: __Date:
--- NOTE | 2024-07-07 11:52 | HP.PTREVAL ---
Re-Evaluation Intro: Dr. Jarvis Larson, DO, It has been my pleasure to treat BUCKY PELAYO over the last 12 visits for Left Knee. Please see the progress note below for an update on the physical therapy plan of care! Subjective Subjective: Pt. reports overall doing well. Pt. reports being 45% better overall. She still has issues with her leg giving out on her at times and with it hyper extending. Objective Objective/Function: ROM: 0-0-138deg Pt. has some posterior pain with end range extension with over pressure. MMT: LLE: SLR without quad lag. knee: ext 37#, flexion 20#; hip: flexion 23#, abd 21#. RLE: knee: ext 48#, flexion 32#, hip: flexion 26#, abd 32# PT. has increased R sided wt. shift with squat, STAIRS: Pt. has mild increase in pain during L stance phase of descending. I would like Bucky to continue with PT to work on quad/hip strengthening in preperation for her ACL/meniscal surgery. Plan Plan Plan: Extending POC to continue to work on quad, HS and glute med strengthening. Balance/Gait/Functional tests Balance/Special Test Scores Lower Extremity Functional Score: 52 Goals Goals Goal 1:: Patient will be I with HEP and progression Goal Time Frame: 4-6 Weeks Goal Progress: Progressing Goal 2:: Patient will SLS for 30 sec without instability Goal Time Frame: 4-6 Weeks Goal Progress: Goal Met Goal 3:: Patient will demo equal strength bilateral LE Goal Time Frame: 4-6 Weeks Goal Progress: Progressing Goal 4:: Patient will report no pain for 1 week Goal Time Frame: 4-6 Weeks Goal Progress: Progressing Goal 5:: Patient will report 80% improvement Goal Time Frame: 4-6 Weeks Goal Progress: Progressing Anticipated Interventions Anticipated Interventions Patient/Client Instruction: Educate patient on: Benefits of Fitness Program Therapeutic Exercise to Include: Strength training, Endurance training, Balance training, Agility training, Body mechanics, Postural training, Flexibilty training, Gait and locomotor training, Neuromotor development, Dynamic Lumbar Stabilization and Scapular Strength/Stabilization For the Purpose of:: To improve muscle performance and motor function TENS: Yes Cryotherapy (ice pack, ice massage): Yes Thermo therapy (hot pack): Yes Ultrasound (thermal/non thermal): Yes Re-Evaluation Ending Re-evaluation ending: Please do not hesitate to contact me at [phone] by phone or if you have questions or concerns regarding this new plan of care! Sincerely, FRIEDA ArchibaldT
--- NOTE | 2024-08-20 07:25 | HP.PTREVAL ---
Re-Evaluation Intro: Dr. Jarvis Larson, DO, It has been my pleasure to treat BUCKY PELAYO over the last 16 visits for L ACL Repair. Please see the progress note below for an update on the physical therapy plan of care! Subjective Subjective: Pt. had her L ACL repaired on 08/13/24. Pt. arrives using crutches, but are a little too short for her. Pt. reports being sore, but overall not too bad. Objective Objective/Function: ROM: 0-0-67deg. with assistance, no OP at this point in time. Pt. has decent quad contraction, but not full. Pt. is unable to complete SLR at this point in time. Girth circumference: 4cm difference at mid patella Good healing incision, slight drainage noted from 1 port hole. No signs of infection noted. Pt. has normal sensation throughout BLEs. Pt. ambulates with TROM brace in place (locked). Pt. ambulates with B crutches with good tolerance. Pt. came with stript to progress per gomez protocol. GOALs re adjusted to reflect new surgery. Plan Plan Plan: Progress per gomez protocol, DOS 08/13/24. Work on increasing quad activation, knee ROM, HS stretching. Pt. to be in TROM brace, locked in extension for gait. Use of ice/vaso for edema control. HEP: quad set, heel prop, heel slides with strap, HS stretch Balance/Gait/Functional tests Balance/Special Test Scores Lower Extremity Functional Score: 52 Goals Goals Goal 1:: Patient will be I with HEP and progression Goal Time Frame: 4-6 Weeks Goal Progress: Progressing Goal 2:: STG: Pt. to complete SLR with out extensor lag x20 inidcating increased quad strength. Goal Time Frame: 4-6 Weeks Goal Progress: Progressing Goal 3:: LTG: Pt. to have 5/5 strength throughout LLE. Goal Time Frame: 4-6 Weeks Goal Progress: Progressing Goal 4:: STG: pt. to have normal gait pattern without crutches with good knee stability and no pain. Goal Time Frame: 4-6 Weeks Goal Progress: Progressing Goal 5:: LTG: Pt. to have increased L knee ROM to 0-0-120dge. Goal Time Frame: 4-6 Weeks Goal Progress: Progressing Goal 6:: LTG: Pt. to have symmetrical knee girth indicating reduced L knee edema. Anticipated Interventions Anticipated Interventions Patient/Client Instruction: Educate patient on: Benefits of Fitness Program Therapeutic Exercise to Include: Strength training, Endurance training, Balance training, Agility training, Body mechanics, Postural training, Flexibilty training, Gait and locomotor training, Neuromotor development, Dynamic Lumbar Stabilization and Scapular Strength/Stabilization For the Purpose of:: To decrease pain, To increase ROM, To increase oxygenation perfusion, To improve muscle performance and motor function, To improve health of tissue, To decrease soft tissue restriction and To increase flexibility/ROM Manual Therapy Techniques to Include: Other Comment: IASTIM For the Purpose of:: To decrease pain, To increase ROM, To improve nutrient delivery to tissue and To increase oxygenation perfusion TENS: Yes Cryotherapy (ice pack, ice massage): Yes Thermo therapy (hot pack): Yes Ultrasound (thermal/non thermal): Yes Vasopneumatic device: Yes For the Purpose of:: To decrease pain, To decrease swelling/inflammation and To increase ROM Re-Evaluation Ending Re-evaluation ending: Please do not hesitate to contact me at [phone] by phone or if you have questions or concerns regarding this new plan of care! Sincerely, Boris Scott DPT
== END 2024-11-16 19:00 | disposition home or self-care (01) ==
LOC: PT 10:00
PROVIDERS: PCP Family Medicine; Referring Provider Student in an Organized Health Care Education/Training Program; Visit Provider Student in an Organized Health Care Education/Training Program
DX: S83.512D Sprain of anterior cruciate ligament of left knee, subsequent encounter (principal); S83.242D Other tear of medial meniscus, current injury, left knee, subsequent encounter; S83.412D Sprain of medial collateral ligament of left knee, subsequent encounter
CPT/HCPCS: 97016; 97110; 97162; 97530

== ENCOUNTER 2025-02-08 10:00 | Outpatient (RCR) | payer BC, SELFPAY ==
--- NOTE | 2025-02-08 10:37 | HP.PTDCSUM ---
Discharge Summary D/C summary: It has been my pleasure to treat BUCKY PELAYO referred by Dr. Jarvis Larson DO, with the diagnosis of L ACL repair for a total of 48 visit(s). Discharge Date: 02/08/25 Please see the following information for a summary of their discharge status. Subjective Subjective: Pt. reports overall doing well. Pt. reports having no issues at work. She reports being 90% better overall. She reports no knee pain with all activities. Overall Improvement % Improvement: 90 Objective Objective/Function: MMT: LLE: knee ext 59.0#, flex 39.8#; hip fle 49.3#, abd 46.4# RLE: knee ext 60.9#, flex- 37.8#, hip flex 49.1#, abd 45.3# GAIT: normal gait mechanics without issues STAIRS: normal without use of HR with reciprocal pattern. SQUAT: normal with equal wt. shifting, no valgus No issues with work or recreational activities pt. is able to jog without increase in symptoms overall bucky is doing very well. She will be DC from PT at this point in time. Goals Goal 1:: LTG: Pt. to be I with HEP. Goal Progress: Goal Met Goal 2:: LTG: pt. to maintain full ROM of L knee. Goal Progress: Goal Met Goal 3:: LTG: Pt. to have symmetrical strength between BLEs. Goal Progress: Goal Met Goal 4:: LTG: Pt. to complete squats with normal mechanics. Goal Progress: Progressing Goal 5:: LTG: pt. to be able to jog without increase in symptoms and normal mechanics. Goal Progress: Progressing Plan Plan: Pt. to be DC from PT at this point in time. D/C Information Discharge Comments: Pt. has met all goals at this point in time and is doing great. Pt. will be DC from PT at this point in time. d/c sentence: If there are questions or concerns regarding this patient's physical therapy, please feel free to call me at [phone]. Thank you for the referral of this patient. Sincerely, Boris Tyler Sipos, DPT Balance/Gait/Functional tests Balance/Special Test Scores Lower Extremity Functional Score: 73 Improvement % Improvement: 90
== END 2025-02-08 19:00 | disposition home or self-care (01) ==
LOC: PT 10:00
PROVIDERS: PCP Family Medicine; Referring Provider Student in an Organized Health Care Education/Training Program; Visit Provider Student in an Organized Health Care Education/Training Program
DX: S83.512D Sprain of anterior cruciate ligament of left knee, subsequent encounter (principal); S83.242D Other tear of medial meniscus, current injury, left knee, subsequent encounter; S83.412D Sprain of medial collateral ligament of left knee, subsequent encounter
CPT/HCPCS: 97110; 97530

== ENCOUNTER 2025-07-19 09:16 | Emergency (ER) | payer OTHER, BC, SELFPAY ==
[2025-07-19 09:17] VITALS: BP 144/84; PULSE 121; RESP 18; TEMP 37; O2SAT 100; BMI 32.6
--- NOTE | 2025-07-19 09:27 | ED.VIS.GI ---
HPI HPI - GI History of Present Illness Chief Complaint: Abd Pain Narrative Narrative: 40-year-old female presents with mid abdominal pain/periumbilical pain that she has had for the last 24 to 48 hours. She states that she went to bed on Saturday evening, and at 2:00 in the morning on Saturday, awoke with abdominal pain. She had the feeling like she had to have a bowel movement. However, she states she was unable to. Over the last 24 hours she has had small amount of bowel movement, but states that it is more liquid and flaky. She may have had more bright red blood per rectum from straining. While she denies fevers or chills, she had nausea and vomiting as well. She states it feels more like a cramping sensation in her abdomen like she has to have a bowel movement. She did have to drive herself to the emergency department today. No prior abdominal surgeries. Positive recent menses. [facility] Medical History History of meniscal tear Wears contact lenses Wears glasses Depression History of steroid therapy Non-smoker Asthma Home Medications ?Medication ?Instructions ?Recorded ?Last Taken ?Type albuterol sulfate 90 mcg/actuation 1 inh inhalation Q6H 08/03/24 Unknown History breath activated powder inhaler,sensor bupropion HCl 300 mg 24 hr tablet, 300 mg PO DAILY 08/03/24 Unknown History extended release zolpidem 10 mg tablet 10 mg PO DAILY 08/03/24 Unknown History montelukast 10 mg tablet 10 mg PO QDAY 10/09/24 Unknown History (Singulair) amoxicillin 875 mg-potassium 1 tab PO BID #20 tabs 12/21/24 Unknown Rx clavulanate 125 mg tablet dicyclomine 20 mg tablet 20 mg PO TID PRN abdominal pain 07/19/25 Unknown Rx #20 tabs Allergy/AdvReac Type Severity Reaction Status Date / Time No Known Allergies Allergy Verified 07/19/25 09:17 Family History Other Cancer Surgical History History of knee surgery Hx of breast augmentation Social History Smoking Status: Never smoker ROS ROS ED ROS Narrative Review of systems positive for loose stool with obstipation at times. Positive abdominal pain mid abdomen. No prior surgeries. No fevers or chills. Positive nausea and vomiting. EXAM Physical Exam Narrative Exam Narrative: Afebrile. Vital signs noted. Nontoxic-appearing. Cardiovascular examination reveals positive tachycardia. Lungs are clear to auscultation bilaterally. The abdomen is soft with tenderness to palpation in the periumbilical area more towards the mid abdomen. Positive bowel sounds. No guarding. Rebound tenderness appreciable. Const Vital Signs: 07/19/25 09:17 07/19/25 11:17 Temperature 98.6 F Temperature Source Temporal Pulse Rate 121 H 70 Respiratory Rate 18 16 Blood Pressure 144/84 H 119/81 H Blood Pressure Mean 104 93 Pulse Ox 100 99 Oxygen Delivery Method Room Air MDM MDM MDM Narrative Medical decision making narrative: Differential diagnosis includes but not limited to pancreatitis versus colitis versus diverticulitis versus obstruction versus gastroenteritis. History and physical does not support partial to total bowel obstruction. She has not had prior abdominal surgeries but rather knee surgeries. She was administered morphine and ondansetron as well as a bolus of normal saline. I do feel that CT imaging is indicated. CBC, CMP, and lipase will be obtained as well as serum test. I reviewed her laboratory work and she has normal white count of 8.3 with hemoglobin 14.3, hematocrit 42.6, platelet count normal at 312. CMP is significant for glucose of 110 with a normal anion gap of 15. Normal sodium and potassium. LFTs grossly unremarkable. Lipase normal at 22. I doubt pancreatitis. Serum test negative. I reviewed her urinalysis and she has 0-5 white cells. I do not feel that antibiotics are indicated. Is not having dysuria. CT of the abdomen and pelvis with IV contrast obtained. I reviewed the radiology report and while she may have hemangiomas of the liver and small gallstones, I do not think she has an acute cholecystitis. Appendix appears normal, and there is no bowel obstruction or colonic wall thickening. I do not feel she has a colitis. Upon repeat examination, she is still resting on the cot comfortably. She is not tachycardic any longer. At this point in time, I feel she can be discharged safely home with follow-up. She states she has Zofran ODT's at home. I wrote her prescription for Bentyl to take up to 3 times daily as needed. Return instructions to the emergency department were reviewed. Patient can follow-up with her primary care provider in the next few days. Disposition is discharged home in stable condition. History & Record Review Discussion w/independent historian: Patient Additional record(s) reviewed:: Prior ED visit (No prior ED visit) Lab Data Attestation: I reviewed the patient's lab results. Labs: Laboratory Results - last 24 hr 07/19/25 07/19/25 09:50 10:07 WBC 8.3 RBC 5.00 Hgb 14.3 Hct 42.6 MCV 85.2 MCH 28.6 MCHC 33.6 RDW Std Deviation 37.7 RDW Coeff of Mohini 12.3 Plt Count 312 MPV 10.0 Immature Gran % (Auto) 0.400 Neut % (Auto) 61.2 Lymph % (Auto) 31.1 Graves % (Auto) 5.7 Eos % (Auto) 1.1 Baso % (Auto) 0.5 Absolute Neuts (auto) 5.1 Absolute Lymphs (auto) 2.58 Nucleated RBC % 0 Sodium 140 Potassium 3.7 Chloride 103 Carbon Dioxide 22.0 Anion Gap 15 BUN 13 Creatinine 0.84 Estim Creat Clear Calc 90.32 Est GFR (MDRD) Non-Af 90 BUN/Creatinine Ratio 15.3 Glucose 110 H Calcium 9.0 Total Bilirubin 0.43 AST 22 ALT 18 Alkaline Phosphatase 87 Total Protein 6.9 Albumin 4.2 Globulin 2.7 Albumin/Globulin Ratio 1.6 Lipase 22 Serum , Qual NEGATIVE Urine Color Yellow Urine Clarity Clear Urine pH 6.0 Ur Specific [place] 1.030 Urine Protein 30 H Urine Glucose (UA) Normal Urine Ketones 50 H Urine Occult Blood 10 H Urine Nitrite Negative Urine Bilirubin Negative Urine Urobilinogen 1 H Ur Leukocyte Esterase Negative Urine RBC 0 SEEN Urine WBC 0-5 SEEN Ur Squamous Epith Cells 5-10 SEEN Urine Bacteria RARE Urine Mucus 3+ Radiography Diagnostic Testing: Clinical Impression(s) from Imaging Studies Abdomen/Pelvis CT 07/19/25 10:33 IMPRESSION: Multiple small well-defined hypodense nodules scattered throughout the liver as described. These may most likely represent small hemangiomas. Correlation with ultrasound recommended. Small gallstones. IUD is seen within the uterus. A pessary device is seen around the uterine cervix. Reading Location: [id number] Discharge Plan Triage Chief Complaint: Abd Pain ED Provider: Waldemar Grijalva Dx/Rx/DC Orders Clinical Impression: Abdominal pain, Nausea and vomiting Instructions: ED Abdominal Pain Unkn Cause Fem, ED Vomiting (Adult) Prescriptions: New dicyclomine 20 mg tablet 20 mg PO TID PRN (Reason: abdominal pain) Qty: 20 0RF No Action montelukast [Singulair] 10 mg tablet 10 mg PO QDAY amoxicillin-pot clavulanate 875-125 mg tablet 1 tab PO BID Qty: 20 0RF zolpidem 10 mg tablet 10 mg PO DAILY bupropion HCl 300 mg tablet extended release 24 hr 300 mg PO DAILY albuterol sulfate 90 mcg/actuation aero powdr breath act w/sensor 1 inh inhalation Q6H Primary Care Provider: Jaylen Kingsley Referrals: Jaylen Kingsley MD [Primary Care Provider, Family Practice] - 1-2 Days if not improving Activity Restrictions/Additional Instructions: Zofran ODT use as directed. Take Bentyl up to 3 times a day. Return to the emergency department with increased pain, fever, new or worsening symptoms. Print Language: Slovak Disposition Disposition: Home, Self Care
[2025-07-19] MEDS: 0.9% Normal Saline (1000mL) 1,000 ML 999 ML IV (09:44)
[2025-07-19 09:57] LABS: Hematocrit 42.6 % (37-47); Hemoglobin 14.3 g/dL (12.0-15.0); Immature Granulocytes Count 0.030 X10^3/uL (0.0-0.0); Mean Corp Hgb Conc 33.6 g/dL (32-36); Mean Corpuscular Volume 85.2 fL (81-99); Mean Platelet Vol. 10.0 fl (6.2-12.0); NRBC Flagged by Analyzer 0 % (0-5); Platelet Count 312 K/mm3 (150-450); RBC Distribution Width CV 12.3 % (11.6-14.6); RBC Distribution Width SD 37.7 fl (35.1-43.9); Red Blood Count 5.00 M/mm3 (4.2-5.4); White Blood Count 8.3 K/mm3 (4.4-11.0)
[2025-07-19 10:10] LABS: Red Blood Cells-Urine 0 SEEN /hpf (0-5)
[2025-07-19 10:11] LABS: Color, Urine Yellow (Yellow); Glucose, Dipstick Normal (Normal); Ketone-Dipstick 50 mg/dl (Negative); Leukocyte Esterase-Dipstick Negative /ul (Negative); Nitrite-Dipstick Negative (Negative); Occult Blood-Urine 10 /ul (Negative); Protein-Dipstick 30 mg/dl (Negative); Specific Gravity, Urine 1.030 (1.002-1.030); Urine Bilirubin Dipstick Negative (Negative)
[2025-07-19 10:23] LABS: Mucous, Urine 3+ /hpf (<or=2+); Squamous Epithelial Cells - UA 5-10 SEEN /hpf (5-10)
[2025-07-19 10:24] LABS: Internal QC Validated? YES +Cl - CLEAR BKGD; Pregnancy, Serum, hCG Quali. NEGATIVE Negative; Record Kit Lot#, Serum Preg. 980607
--- NOTE | 2025-07-19 10:33 | CT_ITS ---
PROCEDURE: ABDOMEN/PELVIS W IV CONT ONLY 07/19/2025 REASON FOR EXAM: ABDOMINAL PAIN Abdominal pain with cramping. Nausea, vomiting and diarrhea. TECHNIQUE: Procedure Code: [id number] Modality: CT Procedure: ABDOMEN/PELVIS W IV CONT ONLY Coronal and Sagittal reconstruction series were provided. CONTRAST: Isovue-300 VOLUME: 90 mL One or more dose reduction techniques were used (e.g., Automated exposure control, adjustment of the mA and/or kV according to patient size, use of iterative reconstruction technique. RADIATION DOSE SUMMARY: CTDlvol: 12.8 mGy DLP: 871.47 mGycm COMPARISON: None FINDINGS: Lung bases: The lung bases are clear. Bilateral breast implants. Liver: There are multiple well-defined small hypodense nodules scattered throughout both right and left lobes of the liver. These are not typical cyst and may represent small hemangiomas. Correlation with ultrasound recommended if clinically indicated. Gallbladder: Small gallstones. Spleen: Normal size. Pancreas: Normal size without evidence of mass surrounding inflammation or ductal dilation. Adrenals: Unremarkable Kidneys: Normal renal sizes. No hydronephrosis. Bladder: The bladder is only partially filled. Reproductive Organs: IUD is seen within the uterus. A pessary device is seen around the uterine cervix. Bowel: Unremarkable Appendix: Unremarkable Lymph nodes: Unremarkable Vasculature: Unremarkable Peritoneum / Retroperitoneum: Unremarkable Bones: Loss of the normal lumbar lordosis. CT/Abdomen/Pelvis W IV Cont ONLY IMPRESSION: Multiple small well-defined hypodense nodules scattered throughout the liver as described. These may most likely represent small hemangiomas. Correlation with ultrasound recommended. Small gallstones. IUD is seen within the uterus. A pessary device is seen around the uterine cer vix. Reading Location: [id number]
[2025-07-19 10:51] LABS: AST(SGOT) 22 U/L (<=31); Alanine Aminotransfer ALT/SGPT 18 U/L (<=34); Albumin, Serum 4.2 g/dL (3.5-5.0); Alkaline Phosphatase 87 U/L (35-104); Anion Gap 15 (5-15); BUN 13 mg/dL (4-19); BUN/Creat Ratio 15.3 RATIO (10-20); Calcium,Total 9.0 mg/dL (7.6-11.0); Carbon Dioxide 22.0 mmol/L (21.0-32.0); Chloride 103 mmol/L (98-108); Estimated Creatinine Clearance 90.32 ml/min (50-250); Globulin 2.7 g/dL (2.2-4.2); Glucose 110 mg/dL (70-99); Lipase 22 U/L (13-75); Potassium 3.7 mmol/L (3.3-5.1)
[2025-07-19 11:17] VITALS: BP 119/81; PULSE 70; RESP 16; O2SAT 99
[2025-07-19 12:27] VITALS: BP 127/72; PULSE 84; RESP 16; TEMP 37; O2SAT 100
[2025-07-19 13:00] VITALS: BP 128/85; PULSE 77; RESP 14; O2SAT 99
== END 2025-07-19 13:15 | disposition home or self-care (01) ==
PROVIDERS: Emergency Provider Emergency Medicine; PCP Family Medicine; Visit Provider Emergency Medicine
DX: R10.9 Unspecified abdominal pain (principal); R11.2 Nausea with vomiting, unspecified
CPT/HCPCS: 74177; 80053; 81001; 83690; 84703; 85025; 96361; 96374; 96375; 96376; 99283; Q9967; A4216; J2405

== ENCOUNTER → 2025-09-27 | Outpatient (CLI) | payer OTHER, SELFPAY ==
--- NOTE | 2025-09-27 13:59 | BI_ITS ---
EXAM: DIAG MAMM W/CAD, UNILAT N/A CLINICAL HISTORY: F, Age 40 y/o , ABN MAMM. Asymmetric density right breast. Short-term follow- up exam. Evaluate. Document stability. Patient has a right breast implant. Patient has a great grandmother and a paternal aunt who were diagnosed with breast cancer. TECHNIQUE: Procedure Code: [id number] Modality: MG Procedure: DIAG MAMM W/CAD, UNILAT. COMPARISON: Prior exam(s) dated 03/02/2025, 01/18/2025, and 01/01/2024. FINDINGS: TISSUE DENSITY: There are scattered areas of fibroglandular density. Bilateral Breast Mammographic Findings: The 6 mm density in the lateral aspect of the right breast appears less defined and less dense on the mammogram. No suspicious areas of architectural distortion or mass are seen in this location. The density in the retroareolar region of the right breast appear stable. The right breast implant appears to be intact. No suspicious mass, suspicious cluster of microcalcifications, architectural distortion or secondary signs of malignancy is identified in the right breast. BI/DIAG MAMM W/CAD, UNILAT IMPRESSION: Benign mammogram. The density appears less defined and less dense on today's s tudy. The patient should return in January 2026 for routine yearly screening mammography. OVERALL FINAL ASSESSMENT BI-RADS 2: BENIGN RECOMMENDATION: Routine annual follow-up in 1 Year Additional Recommendation none A letter with findings and recommendations will be mailed to the patient. Reading Location: [id number]
== END | disposition home or self-care (01) ==
LOC: OPBI 13:57
PROVIDERS: PCP Family Medicine; Referring Provider Nurse Practitioner Family; Visit Provider Nurse Practitioner Family
DX: R92.8 Other abnormal and inconclusive findings on diagnostic imaging of breast (principal)
CPT/HCPCS: 77061; 77065; G0279